=== PATIENT | male | born 1985 | race American Indian/Alaskan Native ===

== ENCOUNTER 2018-02-01 00:18 | Emergency (ER) | payer BC, OTHER ==
[2018-02-01 00:27] VITALS: BP 138/93
--- NOTE | 2018-02-01 01:06 | EDM.PDOC ---
ED HPI GENERAL MEDICAL PROBLEM - General Chief Complaint: Lower Extremity Injury/Pain Stated Complaint: LEFT KNEE INJURY Time Seen by Provider: 02/01/18 00:27 Source of Information: Reports: Patient History Limitations: Reports: No Limitations - History of Present Illness INITIAL COMMENTS - FREE TEXT/NARRATIVE: The patient presents with left knee pain. He was playing softball today and he slid into second base and hurt his left knee. He could walk on it but it does hurt. He has swelling to his knee. He denies any other injuries. 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 [No Known Home Meds] 02/25/16 [History] Past Medical History - Past Health History Medical/Surgical History: Denies Medical/Surgical History - Past Surgical History HEENT Surgical History: Reports: Adenoidectomy, Tonsillectomy Musculoskeletal Surgical History: Reports: Arthroscopic Knee Social & Family History - Family History Family Medical History: Noncontributory - Tobacco Use Smoking Status *Q: Current Every Day Smoker Years of Tobacco use: 10 Packs/Tins Daily: 0.4 - Caffeine Use Caffeine Use: Reports: None - Recreational Drug Use Recreational Drug Use: No - Living Situation & Occupation Living situation: Reports: with Family, Single Review of Systems - Review of Systems Review Of Systems: See Below Constitutional: Reports: No Symptoms Eyes: Reports: No Symptoms Ears: Reports: No Symptoms Nose: Reports: No Symptoms Mouth/Throat: Reports: No Symptoms Respiratory: Reports: No Symptoms Cardiovascular: Reports: No Symptoms GI/Abdominal: Reports: No Symptoms Genitourinary: Reports: No Symptoms Musculoskeletal: Reports: Other (Left knee swelling) ED EXAM, GENERAL - Physical Exam Exam: See Below Exam Limited By: No Limitations General Appearance: Alert, No Apparent Distress Ears: Normal External Exam Nose: Normal Inspection Head: Atraumatic, Normocephalic Neck: Normal Inspection Respiratory/Chest: No Respiratory Distress Extremities: Other (Pain upon palpation and edema to the front of the knee and lateral and medial to the left knee. Good sensaton and pulses distally) Neurological: Alert, Oriented, No Motor/Sensory Deficits Course - Vital Signs Last Recorded V/S: Last Vital Signs Temp 98.6 F 02/01/18 00:24 Pulse 83 02/01/18 00:24 Resp 18 02/01/18 00:24 BP 138/93 H 02/01/18 00:24 Pulse Ox 100 02/01/18 00:24 - Orders/Labs/Meds Orders: Active Orders 24 hr Category Date Time Status Knee Min 4V Lt [CR] Stat Exams 02/01/18 00:34 Ordered Durable Medical Equipment for Discharge [DME for Oth 02/01/18 01:08 Ordered Discharge] [COMM] Stat - Re-Assessments/Exams Free Text/Narrative Re-Assessment/Exam: 02/01/18 01:09 His x-ray shows a 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 His ligaments are stable on exam but he is guarding. I will get him in a knee immobilizer and crutches and I will have him follow up with orthopedic surgery. Departure - Departure Time of Disposition: 01:10 Disposition: Home, Self-Care 01 Condition: Good Clinical Impression: Sprain of left knee Qualifiers: Encounter type: initial encounter Involved ligament of knee: unspecified ligament Qualified Code(s): S83.92XA - Sprain of unspecified site of left knee, initial encounter - Discharge Information Referrals: PCP,None [Primary Care Provider] - Thom Camarillo MD [Physician] - 1 Week Forms: ED Department Discharge Additional Instructions: Ice your knee for 15 minutes every other hour for 2 days. Try to elevate your knee above your heart as much as you can for 2 days. Take motrin or aleve for pain. You may try some hydrocodone for pain as needed. Follow up with Dr Camarillo in 1 week. Please return if you are worse. - My Orders Last 24 Hours: My Active Orders 02/01/18 00:34 Knee Min 4V Lt [CR] Stat 02/01/18 01:08 Durable Medical Equipment for Discharge [DME for Discharge] [COMM] Stat - Assessment/Plan Last 24 Hours: My Active Orders 02/01/18 00:34 Knee Min 4V Lt [CR] Stat 02/01/18 01:08 Durable Medical Equipment for Discharge [DME for Discharge] [COMM] Stat
--- NOTE | 2018-02-02 12:44 | CR ---
Left knee: Four views of the left knee were obtained. Comparison: No previous knee exam. Small bony exostosis is noted off the proximal medial tibia which is incidental. Detached bony density is noted off the anterior tibial tuberosity which is a normal variant. Mild soft tissue swelling is seen anteriorly. Medial and lateral joint spaces are maintained in height. No joint effusion is seen. No acute fracture or other bony abnormality is identified. Impression: 1. Soft tissue swelling. 2. Other incidental findings. No acute bony abnormality is identified. Diagnostic code #2
== END 2018-02-01 01:15 | disposition home or self-care (01) ==
LOC: JD.ED 00:18
DX: S83.92XA Sprain of unspecified site of left knee, initial encounter (principal); F17.210 Nicotine dependence, cigarettes, uncomplicated; X50.9XXA Other and unspecified overexertion or strenuous movements or postures, initial encounter; Y93.64 Activity, baseball
CPT/HCPCS: 73564-26-LT; 73564-LT; 99283